=== PATIENT | female | born 1995 | race Caucasian/White ===

== ENCOUNTER 2016-02-22 18:44 | Outpatient (CLI) | payer OTHER ==
[2016-02-22] MEDS ORDERED: Acetaminophen/oxyCODONE 325-5 MG Tab PO ONE (20:31)
== END 2016-02-22 20:56 | disposition home or self-care (01) ==
LOC: MW.OBCHECK 18:44 → MW.OB 19:06 → MW.OBCHECK 20:56
PROVIDERS: ATTEND Advanced Practice Midwife
DX: O26.899 Other specified pregnancy related conditions, unspecified trimester (principal); R10.9 Unspecified abdominal pain
CPT/HCPCS: 81003; 87086; A9270

== ENCOUNTER → 2016-05-11 | Outpatient (CLI) | payer OTHER | LOC: MW.CHOBGYN 15:37 | PROVIDERS: ATTEND Advanced Practice Midwife | DX: Z01.419 Encounter for gynecological examination (general) (routine) without abnormal findings (principal) | CPT/HCPCS: G0145 ==

== ENCOUNTER 2018-12-15 08:06 | Inpatient (IN) | payer BC, OTHER ==
[2018-12-15] MEDS ORDERED: Sodium Chloride 0.9% 10 ML Syringe FLUSH PRN (08:27)
[2018-12-15] MEDS ORDERED: Misoprostol 200 MCG Tab PO PRN (08:27)
[2018-12-15] MEDS ORDERED: Nalbuphine 10 MG/1 ML Vial IVPUSH PRN (08:27)
[2018-12-15] MEDS ORDERED: Sodium Chloride 0.9% 10 ML SDV IV PRN (08:27)
[2018-12-15] MEDS ORDERED: Lidocaine 1% 50 ML MDV INJECT PRN (08:27)
[2018-12-15] MEDS ORDERED: Water For Irrigation,Sterile 1,000 ML Container IRR PRN (08:27)
[2018-12-15] MEDS ORDERED: Methylergonovine 0.2 MG/1 ML Amp IM PRN (08:27)
[2018-12-15] MEDS ORDERED: Sodium Chloride 0.9% 2.5 ML Syringe FLUSH PRN (08:27)
[2018-12-15] MEDS ORDERED: Tranexamic Acid 1,000 MG in Sodium Chloride 0.9% 100 ML IV PRN (08:27)
[2018-12-15] MEDS ORDERED: Carboprost Tromethamine 250 MCG/1 ML Amp IM PRN (08:27)
[2018-12-15] MEDS ORDERED: Butorphanol 1 MG/ML SDV IVPUSH PRN (08:27)
[2018-12-15] MEDS ORDERED: Lactated Ringers 1,000 ML IV SCH (08:30)
[2018-12-15] MEDS ORDERED: Oxytocin/0.9 % Sodium Chloride 30 UNIT/500 ML BAG IV SCH ×2 (08:30→09:45)
[2018-12-15] MEDS ORDERED: Misoprostol 25 MCG (1/4 of 100 MCG) Tab VAG PRN ×2 (09:42)
[2018-12-15] MEDS ORDERED: Terbutaline 1 MG/ML SDV SUBCUT PRN (09:42)
[2018-12-15] MEDS ORDERED: Misoprostol 25 MCG (1/4 of 100 MCG) Tab PO PRN (10:09)
--- NOTE | 2018-12-15 12:27 | PCM.LDHP ---
L&D History of Present Illness - General Date of Service: 12/15/18 Admit Problem/Dx: Patient Status Order with Admit Dx/Problem 12/15/18 07:55 Patient Status [ADT] Routine Admission Diagnosis/Problem Admission Diagnosis/Problem 12/15/18 12:22 23yo EDC 12/22/2018 39 0/7wks comes for scheduled IOL for term. O+, R-non -immune, GBS neg. 12/15/18 12:23 Source of Information: Patient History Limitations: Reports: No Limitations - History of Present Illness Improves with: Reports: None Worsens with: Reports: None Associated Symptoms: Reports: N - Related Data Allergies/Adverse Reactions: Allergies Allergy/AdvReac Type Severity Reaction Status Date / Time No Known Allergies Allergy Verified 05/06/14 07:06 Home Medications: Home Meds . 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: Musculoskeletal History: Reports: None Neurological History: Reports: None Psychiatric History: Reports: None Endocrine/Metabolic History: Reports: None Hematologic History: Reports: None Immunologic History: Reports: None Oncologic (Cancer) History: Reports: None Dermatologic History: Reports: None - Infectious Disease History Infectious Disease History: Reports: None - Past Surgical History HEENT Surgical History: Reports: None Cardiovascular Surgical History: Reports: None Female Surgical History: Reports: None Musculoskeletal Surgical History: Reports: None Social & Family History - Family History Family Medical History: Noncontributory HEENT: Reports: None - Tobacco Use Smoking Status *Q: Never Smoker Second Hand Smoke Exposure: Yes - Caffeine Use Caffeine Use: Reports: Coffee - Recreational Drug Use Recreational Drug Use: No H&P Review of Systems - Review of Systems: Review Of Systems: See Below General: Reports: No Symptoms HEENT: Reports: No Symptoms Pulmonary: Reports: No Symptoms Cardiovascular: Reports: No Symptoms Gastrointestinal: Reports: No Symptoms Genitourinary: Reports: No Symptoms Musculoskeletal: Reports: No Symptoms Skin: Reports: No Symptoms Psychiatric: Reports: No Symptoms Neurological: Reports: No Symptoms Hematologic/Lymphatic: Reports: No Symptoms Immunologic: Reports: No Symptoms L&D Exam - Exam Exam: See Below - Vital Signs Weight: 108.862 kg - OB Specific Contraction Intensity: Mild Movement: Active Heart Tones: Present Heart Tones per Min: 145 Heart Rate (FHR) Variability: Moderate (6-25 bmp) Presentation: Vertex Estimated Weight: 3300 - Madrid Score Madrid Score Cervix Position: Midposition Madrid Score Consistency: Soft Madrid Score Effacement: >80% Madrid Score Dilation: 3-4 cm Madrid Score 's Station: -2 Madrid Score Total: 9 - Exam General: Alert, Oriented, Cooperative HEENT: Hearing Intact Lungs: Normal Respiratory Effort GI/Abdominal Exam: Soft, Pelvis Stable Rectal Exam: Deferred Genitourinary: Deferred. No: Cervical fluid, Vaginal bleeding Back Exam: Normal Inspection, Full Range of Motion Extremities: Normal Inspection, Normal Range of Motion, Non-Tender, No Pedal Edema Skin: Warm, Dry, Intact Neurological: Cranial Nerves Intact, Strength Equal Bilateral, Normal Gait, Normal Speech, Normal Tone, Sensation Intact Psychiatric: Alert, Normal Affect, Normal Mood - Patient Data Lab Results Last 24 hrs: Laboratory Results - last 24 hr 12/15/18 12/15/18 Range/Units 08:50 08:50 WBC 9.02 (4.0-11.0) K/uL RBC 4.08 L (4.30-5.90) M/uL Hgb 10.7 L (12.0-16.0) g/dL Hct 33.0 L (36.0-46.0) % MCV 80.9 (80.0-98.0) fL MCH 26.2 L (27.0-32.0) pg MCHC 32.4 (31.0-37.0) g/dL RDW Std Deviation 40.7 (28.0-62.0) fl RDW Coeff of Janet 14 (11.0-15.0) % Plt Count 304 (150-400) K/uL MPV 10.10 (7.40-12.00) fL Nucleated RBC % 0.0 /100WBC Nucleated RBCs # 0 K/uL Blood Type O POSITIVE Antibody Screen NEGATIVE Result Diagrams: 12/15/18 08:50 - Problem List (1) Supervision of normal IUP (intrauterine ) in multigravida SNOMED Code(s): 367340831, 546696671, 737998758 ICD Code: Z34.80 - ENCOUNTER FOR SUPRVSN OF NORMAL , UNSP TRIMESTER Status: Acute Current Visit: Yes Qualifiers: Trimester: third trimester Qualified Code(s): Z34.83 - Encounter for supervision of other normal , third trimester Problem List Initiated/Reviewed/Updated: Yes Orders Last 24hrs: Active Orders 24 hr Category Date Time Status Patient Status [ADT] Routine ADT 12/15/18 07:55 Active Bedrest Bathroom Privileges [RC] ASDIRECTED Care 12/15/18 09:44 Active Communication Order [RC] ASDIRECTED Care 12/15/18 09:44 Active Communication Order [RC] ASDIRECTED Care 12/15/18 09:44 Active Communication Order [RC] ASDIRECTED Care 12/15/18 09:44 Active Heart Tones [RC] CONTINUOUS Care 12/15/18 08:27 Active Non Stress Test [RC] PER UNIT ROUTINE Care 12/15/18 08:27 Active May Shower [RC] ASDIRECTED Care 12/15/18 08:27 Active Notify Provider [RC] PRN Care 12/15/18 08:27 Active Notify Provider [RC] PRN Care 12/15/18 09:44 Active Notify Provider [RC] PRN Care 12/15/18 09:44 Active Notify Provider [RC] STAT Care 12/15/18 09:44 Active Oxygen Therapy [RC] ASDIRECTED Care 12/15/18 09:44 Active Up ad Sheila [RC] ASDIRECTED Care 12/15/18 08:27 Active Vaginal Exam [RC] PRN Care 12/15/18 08:27 Active Vaginal Exam [RC] PRN Care 12/15/18 09:44 Active Vital Signs [RC] PER UNIT ROUTINE Care 12/15/18 08:27 Active Vital Signs [RC] PER UNIT ROUTINE Care 12/15/18 09:44 Active RAPID PLASMA REAGIN, QUANT [REF] Routine Lab 12/15/18 08:50 Received Butorphanol [Stadol] Med 12/15/18 08:27 Active 1 mg IVPUSH Q1H PRN Carboprost Tromethamine [Hemabate DS] Med 12/15/18 08:27 Active 250 mcg IM ASDIRECTED PRN Lactated Ringers [Ringers, Lactated] 1,000 ml Med 12/15/18 08:30 Active IV ASDIRECTED Lidocaine 1% [Xylocaine 1%] Med 12/15/18 08:27 Active 50 ml INJECT ONETIME PRN Methylergonovine [Methergine] Med 12/15/18 08:27 Active 0.2 mg IM ASDIRECTED PRN Nalbuphine [Nubain] Med 12/15/18 08:27 Active 10 mg IVPUSH Q1H PRN Oxytocin/0.9 % Sodium Chloride [Oxytocin 30 Unit/500 ML Med 12/15/18 08:30 Active -NS] 30 unit in 500 ml IV TITRATE Oxytocin/0.9 % Sodium Chloride [Oxytocin 30 Unit/500 ML Med 12/15/18 09:45 Active -NS] 30 unit in 500 ml IV TITRATE Sodium Chloride 0.9% [Normal Saline] Med 12/15/18 08:27 Active 10 ml IV ASDIRECTED PRN Sodium Chloride 0.9% [Saline Flush] Med 12/15/18 08:27 Active 10 ml FLUSH ASDIRECTED PRN Sodium Chloride 0.9% [Saline Flush] Med 12/15/18 08:27 Active 2.5 ml FLUSH ASDIRECTED PRN Terbutaline [Brethine] Med 12/15/18 09:42 Active 0.25 mg SUBCUT ASDIRECTED PRN Tranexamic Acid [Cyklokapron] 1,000 mg Med 12/15/18 08:27 Active Sodium Chloride 0.9% [Normal Saline] 100 ml IV ONETIME Water For Irrigation,Sterile [Sterile Water for Med 12/15/18 08:27 Active Irrigation] 1,000 ml IRR ASDIRECTED PRN miSOPROStol [Cytotec] Med 12/15/18 08:27 Active 200 mcg PO ONETIME PRN miSOPROStol [Cytotec] Med 12/15/18 10:09 Active 25 mcg PO Q4H PRN miSOPROStol [Cytotec] Med 12/15/18 09:42 Active 25 mcg VAG ONETIME PRN miSOPROStol [Cytotec] Med 12/15/18 09:42 Active 25 mcg VAG Q4H PRN Scalp Electrode [WOMSER] Per Unit Routine Oth 12/15/18 08:27 Ordered Medication Administration Instruction [OM.PC] Q3H Oth 12/15/18 09:45 Ordered Peripheral IV Insertion Adult [OM.PC] Routine Oth 12/15/18 08:27 Ordered Resuscitation Status Routine Resus Stat 12/15/18 08:27 Ordered Medication Orders Butorphanol Tartrate (Stadol) 1 mg IVPUSH Q1H PRN PRN Reason: Pain Carboprost Tromethamine (Hemabate Ds) 250 mcg IM ASDIRECTED PRN PRN Reason: Post Hemorrhage Lactated Ringer's (Ringers, Lactated) 1,000 mls @ 150 mls/hr IV ASDIRECTED NETTA Last Admin: 12/15/18 10:01 Dose: 125 mls/hr Oxytocin/Sodium Chloride (Oxytocin 30 Unit/500 Ml-Ns) 30 unit in 500 mls @ 999 mls/hr IV TITRATE NETTA Tranexamic Acid 1,000 mg/ (Sodium Chloride) 110 mls @ 660 mls/hr IV ONETIME PRN PRN Reason: Bleeding Oxytocin/Sodium Chloride (Oxytocin 30 Unit/500 Ml-Ns) 30 unit in 500 mls @ 2 mls/hr IV TITRATE [facility]; Protocol Lidocaine HCl (Xylocaine 1%) 50 ml INJECT ONETIME PRN PRN Reason: Laceration repair Methylergonovine Maleate (Methergine) 0.2 mg IM ASDIRECTED PRN PRN Reason: Post Hemorrhage Misoprostol (Cytotec) 200 mcg PO ONETIME PRN PRN Reason: Post Hemorrhage Misoprostol (Cytotec) 25 mcg VAG ONETIME PRN PRN Reason: Cervical Ripening Misoprostol (Cytotec) 25 mcg VAG Q4H PRN PRN Reason: Cervical Ripening Last Admin: 12/15/18 10:14 Dose: 25 mcg Misoprostol (Cytotec) 25 mcg PO Q4H PRN PRN Reason: Other Last Admin: 12/15/18 10:18 Dose: 25 mcg Nalbuphine HCl (Nubain) 10 mg IVPUSH Q1H PRN PRN Reason: Pain (severe 7-10) Sodium Chloride (Saline Flush) 10 ml FLUSH ASDIRECTED PRN PRN Reason: Keep Vein Open Sodium Chloride (Saline Flush) 2.5 ml FLUSH ASDIRECTED PRN PRN Reason: Keep Vein Open Sodium Chloride (Normal Saline) 10 ml IV ASDIRECTED PRN PRN Reason: IV Use Sterile Water (Sterile Water For Irrigation) 1,000 ml IRR ASDIRECTED PRN PRN Reason: delivery Terbutaline Sulfate (Brethine) 0.25 mg SUBCUT ASDIRECTED PRN PRN Reason: Tacysystole Assessment/Plan Comment:: IOL A: 23yo EDC 12/22/2018 39 0/7wks comes for scheduled IOL for term. O+, R- non-immune, GBS neg. P: Admit, cytotec, june AROM. Anticipate , Dr marsh updated
--- NOTE | 2018-12-15 13:23 | PCM.DEL ---
L & D Note - General Info Date of Service: 12/15/18 Mother's Due Date: 12/22/18 - Delivery Note Labor: Induced by ARM Cervical Ripening Method: Misoprostil Delivery Outcome: Livebirth Delivery Method: Spontaneous Vaginal Delivery-Single Delivery Mode: Spontaneous Presentation: Vertex Nuchal Cord: None Anesthesia Type: None Amniotic Fluid Description: Clear Episiotomy Type: None Laceration: None Placenta: Intact, Spontaneous Cord: 3 Vessels Estimated Blood Loss: 100 Resuscitation Needed: No Second Stage Interventions: Reports: Pushing, Pulls Own Legs Back Delivery Comments (Free Text/Narrative):: of viable female. Head delivered with good pushing, shoulders and body followed easily. Infant to mother abdomen with RN at bs. Spont cry. Delayed cord clamping. Pitocin to IVF. Cord clamped and cut by FOB. Placenta delivered grossly intact. Inspection noted intact perineum. EBL 100, AGPARS 7/9, Wt: pending bonding. Mother and baby left in stable condition for recovery. Induction Criteria - Madrid Score Madrid Score Dilation: 3-4 cm Madrid Score Effacement: 60-70% Madrid Score 's Station: -2 Madrid Score Consistency: Soft Madrid Score Cervix Position: Midposition Madrid Score Total: 8 Madrid Score Presenting Part: Reports: Cephalic - Induction Gestational Age >/= 39 wks: Yes Medical Indication: Term Estimated Pelvis: Reports: Adequate Reassuring Monitoring Strip: Yes Absence of Tachy Systole: Yes - General Info Date of Service: 12/15/18 Admission Dx/Problem (Free Text): Patient Status Order with Admit Dx/Problem 12/15/18 07:55 Patient Status [ADT] Routine Admission Diagnosis/Problem Admission Diagnosis/Problem 12/15/18 12:22 23yo EDC 12/22/2018 39 0/7wks comes for scheduled IOL for term. O+, R-non -immune, GBS neg. 12/15/18 12:23 Functional Status: Reports: Pain Controlled, Tolerating Diet - Review of Systems General: Reports: No Symptoms HEENT: Reports: No Symptoms Pulmonary: Reports: No Symptoms Cardiovascular: Reports: No Symptoms Gastrointestinal: Reports: No Symptoms Genitourinary: Reports: No Symptoms Musculoskeletal: Reports: No Symptoms Skin: Reports: No Symptoms Neurological: Reports: No Symptoms Psychiatric: Reports: No Symptoms - Patient Data Weight - Most Recent: 108.862 kg Lab Results Last 24 Hours: Laboratory Results - last 24 hr 12/15/18 12/15/18 Range/Units 08:50 08:50 WBC 9.02 (4.0-11.0) K/uL RBC 4.08 L (4.30-5.90) M/uL Hgb 10.7 L (12.0-16.0) g/dL Hct 33.0 L (36.0-46.0) % MCV 80.9 (80.0-98.0) fL MCH 26.2 L (27.0-32.0) pg MCHC 32.4 (31.0-37.0) g/dL RDW Std Deviation 40.7 (28.0-62.0) fl RDW Coeff of Janet 14 (11.0-15.0) % Plt Count 304 (150-400) K/uL MPV 10.10 (7.40-12.00) fL Nucleated RBC % 0.0 /100WBC Nucleated RBCs # 0 K/uL Blood Type O POSITIVE Antibody Screen NEGATIVE Med Orders - Current: Current Medications Butorphanol Tartrate (Stadol) 1 mg IVPUSH Q1H PRN PRN Reason: Pain Carboprost Tromethamine (Hemabate Ds) 250 mcg IM ASDIRECTED PRN PRN Reason: Post Hemorrhage Lactated Ringer's (Ringers, Lactated) 1,000 mls @ 150 mls/hr IV ASDIRECTED NETTA Last Admin: 12/15/18 10:01 Dose: 125 mls/hr Oxytocin/Sodium Chloride (Oxytocin 30 Unit/500 Ml-Ns) 30 unit in 500 mls @ 999 mls/hr IV TITRATE [facility] Tranexamic Acid 1,000 mg/ (Sodium Chloride) 110 mls @ 660 mls/hr IV ONETIME PRN PRN Reason: Bleeding Oxytocin/Sodium Chloride (Oxytocin 30 Unit/500 Ml-Ns) 30 unit in 500 mls @ 2 mls/hr IV TITRATE [facility]; Protocol Lidocaine HCl (Xylocaine 1%) 50 ml INJECT ONETIME PRN PRN Reason: Laceration repair Methylergonovine Maleate (Methergine) 0.2 mg IM ASDIRECTED PRN PRN Reason: Post Hemorrhage Misoprostol (Cytotec) 200 mcg PO ONETIME PRN PRN Reason: Post Hemorrhage Misoprostol (Cytotec) 25 mcg VAG ONETIME PRN PRN Reason: Cervical Ripening Misoprostol (Cytotec) 25 mcg VAG Q4H PRN PRN Reason: Cervical Ripening Last Admin: 12/15/18 10:14 Dose: 25 mcg Misoprostol (Cytotec) 25 mcg PO Q4H PRN PRN Reason: Other Last Admin: 12/15/18 10:18 Dose: 25 mcg Nalbuphine HCl (Nubain) 10 mg IVPUSH Q1H PRN PRN Reason: Pain (severe 7-10) Sodium Chloride (Saline Flush) 10 ml FLUSH ASDIRECTED PRN PRN Reason: Keep Vein Open Sodium Chloride (Saline Flush) 2.5 ml FLUSH ASDIRECTED PRN PRN Reason: Keep Vein Open Sodium Chloride (Normal Saline) 10 ml IV ASDIRECTED PRN PRN Reason: IV Use Sterile Water (Sterile Water For Irrigation) 1,000 ml IRR ASDIRECTED PRN PRN Reason: delivery Terbutaline Sulfate (Brethine) 0.25 mg SUBCUT ASDIRECTED PRN PRN Reason: Tacysystole - Exam General: Alert, Oriented, Cooperative, No Acute Distress Lungs: Normal Respiratory Effort GI/Abdominal Exam: Soft, Pelvis Stable (Female) Exam: Normal External Exam, Vaginal Bleeding. No: Vaginal Lesions, Vaginal Tears Back Exam: Normal Inspection, Full Range of Motion Extremities: Normal Inspection, Normal Range of Motion, Non-Tender, No Pedal Edema Skin: Warm, Dry, Intact Neurological: No New Focal Deficit, Normal Speech, Normal Tone, Strength Equal Bilateral Psy/Mental Status: Alert, Normal Affect, Normal Mood - Problem List & Annotations (1) Supervision of normal IUP (intrauterine ) in multigravida SNOMED Code(s): 003727763, 036067206, 159496406 Code(s): Z34.80 - ENCOUNTER FOR SUPRVSN OF NORMAL , UNSP TRIMESTER Status: Acute Current Visit: Yes Qualifiers: Trimester: third trimester Qualified Code(s): Z34.83 - Encounter for supervision of other normal , third trimester (2) (normal spontaneous vaginal delivery) SNOMED Code(s): 75081532, 435124877 Code(s): O80 - ENCOUNTER FOR FULL-TERM UNCOMPLICATED DELIVERY Status: Acute Priority: High Current Visit: No - Problem List Review Problem List Initiated/Reviewed/Updated: Yes - My Orders Last 24 Hours: My Active Orders 12/15/18 09:42 Terbutaline [Brethine] 0.25 mg SUBCUT ASDIRECTED PRN miSOPROStol [Cytotec] 25 mcg VAG ONETIME PRN miSOPROStol [Cytotec] 25 mcg VAG Q4H PRN 12/15/18 09:44 Bedrest Bathroom Privileges [RC] ASDIRECTED Communication Order [RC] ASDIRECTED Communication Order [RC] ASDIRECTED Communication Order [RC] ASDIRECTED Notify Provider [RC] PRN Notify Provider [RC] PRN Notify Provider [RC] STAT Oxygen Therapy [RC] ASDIRECTED Vaginal Exam [RC] PRN Vital Signs [RC] PER UNIT ROUTINE 12/15/18 09:45 Oxytocin/0.9 % Sodium Chloride [Oxytocin 30 Unit/500 ML-NS] 30 unit in 500 ml IV TITRATE Medication Administration Instruction [OM.PC] Q3H - Plan Plan:: IOL A: 23yo EDC 12/22/2018 39 0/7wks comes for scheduled IOL for term. O+, R- non-immune, GBS neg. P: Admit, cytotec, june AROM. Anticipate Dr salma PARIKH updated Delivery A: viable female, APGARS 7/9, Wt: pending, Intact perineum, EBL 100cc, Stable P: Routine pp plan of care
[2018-12-15] MEDS ORDERED: Oxytocin/0.9 % Sodium Chloride 30 UNIT/500 ML BAG ONE (19:22)
[2018-12-15] MEDS ORDERED: Benzocaine/Menthol 20%-0.5% Spray 78 GM Cannister TOP PRN (20:32)
[2018-12-15] MEDS ORDERED: Bisacodyl 10 MG Supp RECTAL PRN (20:32)
[2018-12-15] MEDS ORDERED: Ibuprofen 400 MG Tab PO PRN (20:32)
[2018-12-15] MEDS ORDERED: oxyCODONE 5 MG Tab PO PRN (20:32)
[2018-12-15] MEDS ORDERED: Acetaminophen 500 MG Tab PO PRN ×2 (20:32)
[2018-12-15] MEDS ORDERED: Docusate Sodium 100 MG Cap PO PRN (20:32)
[2018-12-15] MEDS ORDERED: Witch Hazel Medicated Pads 40/Jar TOP PRN (20:32)
[2018-12-15] MEDS ORDERED: Lanolin 100% Cream 7 GM Tube TOP PRN (20:32)
[2018-12-16] MEDS: Ibuprofen 800 MG Tab PO PRN ×2 (05:20→16:51)
[2018-12-16] MEDS ORDERED: Measles, Mumps & Rubella Vaccine 0.5 ML SDV SUBCUT ONE (10:20)
--- NOTE | 2018-12-16 11:00 | PCM.DCSUM1 ---
Discharge Summary - Hospital Course Free Text/Narrative:: Discharge home with infant. Follow up in 6 weeks for . Diagnosis: Stroke: Yes Modified Ely Scale: No Symptoms at All Modified Ely Scale Score: 0 - Discharge Data Discharge Date: 12/16/18 Discharge Disposition: Home, Self-Care 01 Condition: Good - Referral to Home Health Primary Care Physician: PCP None - Discharge Diagnosis/Problem(s) (1) Supervision of normal IUP (intrauterine ) in multigravida SNOMED Code(s): 327340839, 453913180, 707957263 ICD Code: Z34.80 - ENCOUNTER FOR SUPRVSN OF NORMAL , UNSP TRIMESTER Status: Acute Current Visit: Yes Qualifiers: Trimester: third trimester Qualified Code(s): Z34.83 - Encounter for supervision of other normal , third trimester (2) (normal spontaneous vaginal delivery) SNOMED Code(s): 49913300, 682243454 ICD Code: O80 - ENCOUNTER FOR FULL-TERM UNCOMPLICATED DELIVERY Status: Acute Priority: High Current Visit: No - Patient Instructions Diet: Usual Diet as Tolerated Activity: As Tolerated, No Strenuous Activities, Rest and Relax Today Driving: May Drive Today Showering/Bathing: May Shower Notify Provider of: Fever, Increased Pain, Swelling and Redness, Nausea and/or Vomiting Other/Special Instructions: Discharge home with . Follow up in 6 weeks for . - Discharge Plan *PRESCRIPTION DRUG MONITORING PROGRAM REVIEWED*: Not Applicable *COPY OF PRESCRIPTION DRUG MONITORING REPORT IN PATIENT DOMINIC: Not Applicable Prescriptions/Med Rec: Ibuprofen [Motrin] 800 mg PO Q6H PRN #90 tablet PRN Reason: Pain Home Medications: Home Meds Ibuprofen [Motrin] 800 mg PO Q6H PRN #90 tablet 12/16/18 [Rx] Oxygen Therapy Mode: Room Air - Discharge Summary/Plan Comment DC Time >30 min.: Yes - General Info Date of Service: 12/16/18 Admission Dx/Problem (Free Text: Patient Status Order with Admit Dx/Problem 12/15/18 07:55 Patient Status [ADT] Routine Admission Diagnosis/Problem Admission Diagnosis/Problem 12/15/18 12:22 23yo EDC 12/22/2018 39 0/7wks comes for scheduled IOL for term. O+, R-non -immune, GBS neg. 12/15/18 12:23 Functional Status: Reports: Pain Controlled, Tolerating Diet, Ambulating, Urinating - Review of Systems General: Reports: No Symptoms HEENT: Reports: No Symptoms Pulmonary: Reports: No Symptoms Cardiovascular: Reports: No Symptoms Gastrointestinal: Reports: No Symptoms Genitourinary: Reports: No Symptoms Musculoskeletal: Reports: No Symptoms Skin: Reports: No Symptoms Neurological: Reports: No Symptoms Psychiatric: Reports: No Symptoms - Patient Data Vitals - Most Recent: Last Vital Signs Temp 36.4 C 12/16/18 10:36 Pulse Resp 18 12/16/18 05:00 BP 121/72 12/16/18 05:00 Pulse Ox 97 12/16/18 05:00 Weight - Most Recent: 108.862 kg Med Orders - Current: Current Medications Acetaminophen (Tylenol Extra Strength) 500 mg PO Q4H PRN PRN Reason: Pain Last Admin: 12/16/18 10:36 Dose: 500 mg Acetaminophen (Tylenol Extra Strength) 1,000 mg PO Q4H PRN PRN Reason: Pain Last Admin: 12/16/18 01:47 Dose: 1,000 mg Benzocaine/Menthol (Dermoplast Pain Relief 20%-0.5% [place]) 78 gm TOP ASDIRECTED PRN PRN Reason: Perineal Comfort Measure Last Admin: 12/16/18 10:24 Dose: 1 bottle Bisacodyl (Dulcolax) 10 mg RECTAL ONETIME PRN PRN Reason: Constipation Docusate Sodium (Colace) 100 mg PO BID PRN PRN Reason: Constipation Emollient Ointment (Lansinoh Hpa) 0 gm TOP ASDIRECTED PRN PRN Reason: Sore Nipples Ibuprofen (Motrin) 400 mg PO Q4H PRN PRN Reason: Pain Ibuprofen (Motrin) 800 mg PO Q6H PRN PRN Reason: Pain Last Admin: 12/16/18 05:20 Dose: 800 mg Oxycodone HCl (Oxycodone) 5 mg PO Q2H PRN PRN Reason: Pain Witch Nava (Tucks) 1 pad TOP ASDIRECTED PRN PRN Reason: comfort care Discontinued Medications Butorphanol Tartrate (Stadol) 1 mg IVPUSH Q1H PRN PRN Reason: Pain Carboprost Tromethamine (Hemabate Ds) 250 mcg IM ASDIRECTED PRN PRN Reason: Post Hemorrhage Lactated Ringer's (Ringers, Lactated) 1,000 mls @ 150 mls/hr IV ASDIRECTED NETTA Last Infusion: 12/15/18 19:15 Dose: 500 mls/hr Oxytocin/Sodium Chloride (Oxytocin 30 Unit/500 Ml-Ns) 30 unit in 500 mls @ 999 mls/hr IV TITRATE NETTA Last Admin: 12/15/18 19:59 Dose: 999 mls/hr Tranexamic Acid 1,000 mg/ (Sodium Chloride) 110 mls @ 660 mls/hr IV ONETIME PRN PRN Reason: Bleeding Oxytocin/Sodium Chloride (Oxytocin 30 Unit/500 Ml-Ns) 30 unit in 500 mls @ 2 mls/hr IV TITRATE [facility]; Protocol Oxytocin/Sodium Chloride (Oxytocin 30 Unit/500 Ml-Ns) Confirm Administered Dose 30 unit in 500 mls @ as directed .ROUTE .[facility] Stop: 12/15/18 19:23 Lidocaine HCl (Xylocaine 1%) 50 ml INJECT ONETIME PRN PRN Reason: Laceration repair Measles/Mumps/Rubella Vaccine Live (M-M-R Ii Vaccine) 0.5 ml SUBCUT .ONCE ONE Stop: 12/16/18 10:21 Methylergonovine Maleate (Methergine) 0.2 mg IM ASDIRECTED PRN PRN Reason: Post Hemorrhage Misoprostol (Cytotec) 200 mcg PO ONETIME PRN PRN Reason: Post Hemorrhage Misoprostol (Cytotec) 25 mcg VAG ONETIME PRN PRN Reason: Cervical Ripening Misoprostol (Cytotec) 25 mcg VAG Q4H PRN PRN Reason: Cervical Ripening Last Admin: 12/15/18 10:14 Dose: 25 mcg Misoprostol (Cytotec) 25 mcg PO Q4H PRN PRN Reason: Other Last Admin: 12/15/18 10:18 Dose: 25 mcg Nalbuphine HCl (Nubain) 10 mg IVPUSH Q1H PRN PRN Reason: Pain (severe 7-10) Last Admin: 12/15/18 17:55 Dose: 10 mg Sodium Chloride (Saline Flush) 10 ml FLUSH ASDIRECTED PRN PRN Reason: Keep Vein Open Sodium Chloride (Saline Flush) 2.5 ml FLUSH ASDIRECTED PRN PRN Reason: Keep Vein Open Sodium Chloride (Normal Saline) 10 ml IV ASDIRECTED PRN PRN Reason: IV Use Sterile Water (Sterile Water For Irrigation) 1,000 ml IRR ASDIRECTED PRN PRN Reason: delivery Terbutaline Sulfate (Brethine) 0.25 mg SUBCUT ASDIRECTED PRN PRN Reason: Tacysystole - Exam General: Reports: Alert, Oriented, Cooperative, No Acute Distress Lungs: Reports: Normal Respiratory Effort GI/Abdominal Exam: Soft, Non-Tender (Female) Exam: Deferred, Vaginal Bleeding Rectal (Female) Exam: Deferred Back Exam: Reports: Normal Inspection, Full Range of Motion Extremities: Normal Inspection, Normal Range of Motion, Non-Tender, No Pedal Edema Skin: Reports: Warm, Dry, Intact Wound/Incisions: Reports: Healing Well Neurological: Reports: No New Focal Deficit, Normal Gait, Normal Speech, Normal Tone, Strength Equal Bilateral Psy/Mental Status: Reports: Alert, Normal Affect, Normal Mood
[2018-12-16 16:38] VITALS: PULSE 87
[2018-12-16 20:27] VITALS: BP 135/85
== END 2018-12-16 21:24 | disposition home or self-care (01) | DRG 560 ==
LOC: MW.OBCHECK 08:06 → MW.OB 08:07
PROVIDERS: ADMIT Obstetrics & Gynecology; ATTEND Advanced Practice Midwife
PROC: 10E0XZZ Delivery of Products of Conception, External Approach (ICD-10-PCS; principal; 2018-12-15)
PROC: 10907ZC Drainage of Amniotic Fluid, Therapeutic from Products of Conception, Via Natural or Artificial Opening (ICD-10-PCS; 2018-12-15)
DX: O80 Encounter for full-term uncomplicated delivery (principal); Z37.0 Single live birth; Z3A.39 39 weeks gestation of pregnancy
CPT/HCPCS: 36415; 59025; 59409; 85027; 86593; 86850; 86900; 86901; A9270-GY; J2300; J2590; J7120

== ENCOUNTER 2019-06-29 16:51 | Emergency (ER) | payer BC, OTHER ==
[2019-06-29 17:28] VITALS: BP 132/84; PULSE 90
[2019-06-29] MEDS ORDERED: Morphine 4 MG/ML Syringe IVPUSH ONE (17:31)
[2019-06-29] MEDS ORDERED: Ondansetron 4 MG/2 ML SDV IVPUSH ONE (17:31)
[2019-06-29] MEDS ORDERED: Sodium Chloride 0.9% 1,000 ML IV ONE (17:36)
[2019-06-29 18:13] LABS: BLOOD UREA NITROGEN,BUN 5 mg/dL (7.0-18.0); CARBON DIOXIDE,CO2 21.8 mmol/L (21.0-32.0); CHLORIDE,CL 98 mmol/L (98-107); GLUCOSE RANDOM 92 mg/dL (74-106); POTASSIUM,K 3.4 mmol/L (3.5-5.1); SODIUM,NA 135 mmol/L (136-145)
--- NOTE | 2019-06-29 19:16 | US ---
CLINICAL HISTORY: Right flank pain, history of kidney stones, 4 weeks COMPARISON: none TECHNIQUE: Real time carrillo scale imaging and color Doppler analysis was performed of the abdomen. FINDINGS: Liver: Normal parenchymal echotexture where visualized. No suspicious lesions. No intrahepatic biliary dilatation. Common bile duct: Normal caliber measuring up to 3 mm. Gallbladder: No stones or sludge. No wall thickening or pericholecystic fluid. Pancreas: Normal parenchymal echotexture. No pancreatic ductal dilatation. Aorta: Normal caliber. Right kidney: Measures 12.9 cm in length. Normal cortical thickness. Mild to moderate hydronephrosis. No stones identified in the renal collecting system or proximal ureter. Left kidney: Measures 12.8 cm length. Normal cortical thickness and parenchymal echotexture. No hydronephrosis. Urinary bladder: Mildly distended. Left ureteral jet is demonstrated. No ureteral jet seen on the right. Impression : Mild to moderate right hydronephrosis with absence of the right ureteral jet. Findings are concerning for presence of a right ureteral stone. Dictated by Mitchell Nevarez MD @ Jun 29 2019 7:09PM Signed by Dr. Mitchell Nevarez @ Jun 29 2019 7:15PM
--- NOTE | 2019-06-29 19:23 | EDM.PDOC ---
ED HPI GENERAL MEDICAL PROBLEM - General Chief Complaint: Abdominal Pain Stated Complaint: LOWER ABDOMIN PAIN Time Seen by Provider: 06/29/19 17:16 Source of Information: Reports: Patient History Limitations: Reports: No Limitations - History of Present Illness INITIAL COMMENTS - FREE TEXT/NARRATIVE: 24-year-old female presents the emergency room right flank pain. Patient is 2 weeks . 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 Pain Score (Numeric/FACES): 8 - Related Data Allergies Allergy/AdvReac Type Severity Reaction Status Date / Time No Known Allergies Allergy Verified 06/29/19 17:15 Home Meds: Home Meds Ibuprofen [Motrin] 800 mg PO Q6H PRN #90 tablet 12/16/18 [Rx] Phentermine HCl 37.5 mg PO 06/29/19 [History] Past Medical History - Past Health History Medical/Surgical History: Denies Medical/Surgical History HEENT History: Reports: None Cardiovascular History: Reports: None Respiratory History: Reports: None Gastrointestinal History: Reports: None Genitourinary History: Reports: Renal 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: Musculoskeletal History: Reports: None Neurological History: Reports: None Psychiatric History: Reports: None Endocrine/Metabolic History: Reports: None Hematologic History: Reports: None Immunologic History: Reports: None Oncologic (Cancer) History: Reports: None Dermatologic History: Reports: None - Infectious Disease History Infectious Disease History: Reports: Chicken Pox - Past Surgical History HEENT Surgical History: Reports: None Cardiovascular Surgical History: Reports: None Female Surgical History: Reports: None Musculoskeletal Surgical History: Reports: None Social & Family History - Family History Family Medical History: Noncontributory HEENT: Reports: None - Tobacco Use Smoking Status *Q: Never Smoker - Caffeine Use Caffeine Use: Reports: Coffee ED ROS GENERAL - Review of Systems Review Of Systems: See Below Constitutional: Reports: No Symptoms HEENT: Reports: No Symptoms Respiratory: Reports: No Symptoms Cardiovascular: Reports: No Symptoms Endocrine: Reports: No Symptoms GI/Abdominal: Reports: No Symptoms : Reports: No Symptoms Musculoskeletal: Reports: No Symptoms Skin: Reports: No Symptoms Neurological: Reports: No Symptoms Psychiatric: Reports: No Symptoms Hematologic/Lymphatic: Reports: No Symptoms Immunologic: Reports: No Symptoms ED EXAM, RENAL/ - Physical Exam Exam: See Below Exam Limited By: No Limitations General Appearance: Alert, WD/WN, No Apparent Distress, Mild Distress Eye Exam: Bilateral Eye: Normal Fundi, Normal Inspection, Nystagmus Ears: Normal External Exam, Normal Canal, Hearing Grossly Normal Nose: Normal Inspection, Normal Mucosa Throat/Mouth: Normal Inspection, Normal Lips, Normal Teeth, Normal Voice, No Airway Compromise Head: Atraumatic, Normocephalic Neck: Normal Inspection, Supple, Non-Tender, Full Range of Motion Respiratory/Chest: No Respiratory Distress, Lungs Clear, Normal Breath Sounds, No Accessory Muscle Use, Chest Non-Tender Cardiovascular: Normal Peripheral Pulses, Regular Rate, Rhythm, No Edema, No Murmur, No Rub GI/Abdominal: Normal Bowel Sounds, Soft, Non-Tender, No Abnormal Bruit, No Mass , Pelvis Stable Back Exam: Normal Inspection, Full Range of Motion Extremities: Normal Inspection, Normal Range of Motion Neurological: Alert, Oriented, CN II-XII Intact, Normal Cognition, Normal Gait Psychiatric: Normal Affect, Normal Mood Skin Exam: Warm, Intact, Normal Color, No Rash Course - Vital Signs Text/Narrative:: patient had an ultrasound which shows concern for stone with some hydro-on the right side. Patient's pain is tolerable at 4-5 at this time. Patient will be given Tylenol for pain and follow-up with the urology or primary care physician. Last Recorded V/S: Last Vital Signs Temp 97.4 F 06/29/19 17:12 Pulse 90 06/29/19 17:12 Resp 16 06/29/19 17:12 BP 132/84 06/29/19 17:12 Pulse Ox 100 06/29/19 17:12 - Orders/Labs/Meds Labs: Laboratory Tests 06/29/19 06/29/19 06/29/19 Range/Units 17:00 17:00 17:50 WBC 11.85 H (4.0-11.0) K/uL RBC 4.78 (4.30-5.90) M/uL Hgb 12.7 (12.0-16.0) g/dL Hct 38.8 (36.0-46.0) % MCV 81.2 (80.0-98.0) fL MCH 26.6 L (27.0-32.0) pg MCHC 32.7 (31.0-37.0) g/dL RDW Std Deviation 44.4 (28.0-62.0) fl RDW Coeff of Janet 15 (11.0-15.0) % Plt Count 439 H (150-400) K/uL MPV 9.00 (7.40-12.00) fL Neut % (Auto) 87.6 H (48.0-80.0) % Lymph % (Auto) 8.1 L (16.0-40.0) % [place] % (Auto) 3.7 (0.0-15.0) % Eos % (Auto) 0.3 (0.0-7.0) % Baso % (Auto) 0.3 (0.0-1.5) % Neut # (Auto) 10.4 H (1.4-5.7) K/uL Lymph # (Auto) 1.0 (0.6-2.4) K/uL [place] # (Auto) 0.4 (0.0-0.8) K/uL Eos # (Auto) 0.0 (0.0-0.7) K/uL Baso # (Auto) 0.0 (0.0-0.1) K/uL Nucleated RBC % 0.0 /100WBC Nucleated RBCs # 0 K/uL Sodium (136-145) mmol/L Potassium (3.5-5.1) mmol/L Chloride (98-107) mmol/L Carbon Dioxide (21.0-32.0) mmol/L BUN (7.0-18.0) mg/dL Creatinine (0.6-1.0) mg/dL Est Cr Clr Drug Dosing mL/min Estimated GFR (MDRD) ml/min Glucose (74-106) mg/dL Calcium (8.5-10.1) mg/dL Total Bilirubin (0.2-1.0) mg/dL AST (15-37) IU/L ALT (14-63) IU/L Alkaline Phosphatase (46-116) U/L Total Protein (6.4-8.2) g/dL Albumin (3.4-5.0) g/dL Globulin (2.6-4.0) g/dL Albumin/Globulin Ratio (0.9-1.6) HCG, Quant mIU/mL Urine Color YELLOW Urine Appearance SLT CLOUDY Urine pH 5.5 (5.0-8.0) Ur Specific [place] >= 1.030 (1.001-1.035) Urine Protein NEGATIVE (NEGATIVE) mg/dL Urine Glucose (UA) NEGATIVE (NEGATIVE) mg/dL Urine Ketones 40 H (NEGATIVE) mg/dL Urine Occult Blood LARGE H (NEGATIVE) Urine Nitrite NEGATIVE (NEGATIVE) Urine Bilirubin SMALL H (NEGATIVE) Urine Ictotest NEGATIVE Urine Urobilinogen 0.2 (<2.0) EU/dL Ur Leukocyte Esterase NEGATIVE (NEGATIVE) Urine RBC 35-40 (0-2/HPF) Urine WBC 0-2 (0-5/HPF) Ur Epithelial Cells FEW (NONE-FEW) Urine Bacteria FEW (NEGATIVE) Urine HCG, Qual POSITIVE (NEGATIVE) 06/29/19 06/29/19 Range/Units 17:50 17:50 WBC (4.0-11.0) K/uL RBC (4.30-5.90) M/uL Hgb (12.0-16.0) g/dL Hct (36.0-46.0) % MCV (80.0-98.0) fL MCH (27.0-32.0) pg MCHC (31.0-37.0) g/dL RDW Std Deviation (28.0-62.0) fl RDW Coeff of Janet (11.0-15.0) % Plt Count (150-400) K/uL MPV (7.40-12.00) fL Neut % (Auto) (48.0-80.0) % Lymph % (Auto) (16.0-40.0) % [place] % (Auto) (0.0-15.0) % Eos % (Auto) (0.0-7.0) % Baso % (Auto) (0.0-1.5) % Neut # (Auto) (1.4-5.7) K/uL Lymph # (Auto) (0.6-2.4) K/uL [place] # (Auto) (0.0-0.8) K/uL Eos # (Auto) (0.0-0.7) K/uL Baso # (Auto) (0.0-0.1) K/uL Nucleated RBC % /100WBC Nucleated RBCs # K/uL Sodium 135 L (136-145) mmol/L Potassium 3.4 L (3.5-5.1) mmol/L Chloride 98 (98-107) mmol/L Carbon Dioxide 21.8 (21.0-32.0) mmol/L BUN 5 L (7.0-18.0) mg/dL Creatinine 0.7 (0.6-1.0) mg/dL Est Cr Clr Drug Dosing 109.59 mL/min Estimated GFR (MDRD) > 60.0 ml/min Glucose 92 (74-106) mg/dL Calcium 9.0 (8.5-10.1) mg/dL Total Bilirubin 0.3 (0.2-1.0) mg/dL AST 31 (15-37) IU/L ALT 31 (14-63) IU/L Alkaline Phosphatase 93 (46-116) U/L Total Protein 8.4 H (6.4-8.2) g/dL Albumin 4.2 (3.4-5.0) g/dL Globulin 4.2 H (2.6-4.0) g/dL Albumin/Globulin Ratio 1.0 (0.9-1.6) HCG, Quant 635.0 mIU/mL Urine Color Urine Appearance Urine pH (5.0-8.0) Ur Specific [place] (1.001-1.035) Urine Protein (NEGATIVE) mg/dL Urine Glucose (UA) (NEGATIVE) mg/dL Urine Ketones (NEGATIVE) mg/dL Urine Occult Blood (NEGATIVE) Urine Nitrite (NEGATIVE) Urine Bilirubin (NEGATIVE) Urine Ictotest Urine Urobilinogen (<2.0) EU/dL Ur Leukocyte Esterase (NEGATIVE) Urine RBC (0-2/HPF) Urine WBC (0-5/HPF) Ur Epithelial Cells (NONE-FEW) Urine Bacteria (NEGATIVE) Urine HCG, Qual (NEGATIVE) Meds: Medications Discontinued Medications Generic Name Dose Route Start Last Admin Trade Name Freq PRN Reason Stop Dose Admin Sodium Chloride 1,000 mls @ 999 mls/hr 06/29/19 17:36 06/29/19 17:48 Normal Saline IV 06/29/19 18:36 999 mls/hr .Bolus ONE Administration Morphine Sulfate 4 mg 06/29/19 17:31 06/29/19 17:49 Morphine IVPUSH 06/29/19 17:32 4 mg ONETIME ONE Administration Ondansetron HCl 4 mg 06/29/19 17:31 06/29/19 17:48 Zofran IVPUSH 06/29/19 17:32 4 mg ONETIME ONE Administration Departure - Departure Time of Disposition: 19:21 Disposition: Home, Self-Care 01 Condition: Good Clinical Impression: Flank pain, Kidney stone on right side, Kidney stone - Discharge Information Instructions: Kidney Stones, [id number], Dietary Guidelines to Help Prevent Kidney Stones Referrals: PCP,None [Primary Care Provider] - Additional Instructions: Take Tylenol for pain. It is safe in Return for any problems. Large amount of fluids. Stay hydrated For fever and chills Sepsis Event Note - Evaluation Sepsis Screening Result: No Definite Risk - Focused Exam Vital Signs: Vital Signs Temp Pulse Resp BP Pulse Ox 06/29/19 17:12 97.4 F 90 16 132/84 100 Date Exam was Performed: 06/29/19 Time Exam was Performed: 19:17
== END 2019-06-29 19:57 | disposition home or self-care (01) ==
LOC: MW.ED 16:51
DX: N13.2 Hydronephrosis with renal and ureteral calculous obstruction (principal); Z87.442 Personal history of urinary calculi
CPT/HCPCS: 36415; 76700; 80053; 81001; 81025; 84702; 85025; 96374; 96375; 99284; J2270; J2405; J7030; 99283